=== PATIENT | male | born 2005 | race African-American/Black ===

== ENCOUNTER 2025-08-11 19:22 | Emergency (ER) | payer OTHER ==
[2025-08-11] MEDS ORDERED: LIDOCAINE 1% MPF 5 ML VIAL ONE (21:09)
[2025-08-11] MEDS ORDERED: IBUPROFEN 200 MG TAB PO ONE (21:09)
--- NOTE | 2025-08-11 21:57 | RAD REPORT ---
EXAMINATION: XR RIGHT TIBIA AND FIBULA CLINICAL INDICATION: ANIMAL BITE TECHNIQUE:Two view radiograph of the right tibia and fibula were obtained. COMPARISON: No prior exam. FINDINGS: Soft tissue swelling seen in the calf region. No radiopaque foreign body. No fracture or di slocation seen.
[2025-08-11] MEDS ORDERED: AMOX/K CLAV 875 MG TAB ONE (23:06)
--- NOTE | 2025-08-11 23:06 | EDPHYS ---
Physician Documentation [facility] Name: Lachelle Vila Age: 19 yrs Sex: Male : 2005 Arrival Date: 08/11/2025 Time: 19: Bed 11 Private MD: ED Physician Maurice Flores HPI: 08/11 21:05 This 19 yrs old Black Male presents to ER via Ambulatory with complaints of Dog Bite. cp 21:05 The patient was bitten on the right calf, by a dog, as a result of being attacked by cp the animal. Onset: The symptoms/episode began/occurred today. Animal information: Patient/Caregiver unable to provide information related to the animal. Secondary to the bite the patient reports a laceration, that is deep. Associated signs and symptoms: The patient has no apparent associated signs or symptoms. Historical: - Allergies: 20:18 No Known Allergies; dd2 - PMHx: 20:18 None; dd2 - PSHx: 20:18 None; dd2 - Immunization history:: Adult Immunizations not up to date, Last tetanus immunization: unknown. - Infectious Disease History:: Denies. - Social history:: Smoking status: Patient denies any tobacco usage or history of. ROS: 21:10 Skin: Positive for laceration(s), of the right calf, cp 21:10 Constitutional: Negative for body aches, chills, fever, cp 21:10 Neck: Negative for pain with movement, pain at rest, 21:10 Respiratory: Negative for cough, shortness of breath, wheezing, 21:10 Abdomen/GI: Negative for abdominal pain, 21:10 Back: Negative for pain at rest, pain with movement, 21:10 Neuro: Negative for numbness, weakness, 21:10 All other systems are negative, Exam: 21:15 Constitutional: The patient appears in no acute distress, alert, awake, comfortable, cp non-toxic, well developed, well nourished, 21:15 Head/Face: Normocephalic, atraumatic. cp 21:15 ENT: External ear(s): are unremarkable, Nose: is normal, Mouth: is normal, Posterior pharynx: Airway: no evidence of obstruction, patent, 21:15 Chest/axilla: Inspection: normal, 21:15 Cardiovascular: Rate: normal, 21:15 Respiratory: the patient does not display signs of respiratory distress, Respirations: normal, no use of accessory muscles, no retractions, 21:15 Abdomen/GI: Exam negative for discomfort, distension, guarding, Inspection: abdomen appears normal, 21:15 Skin: injury, laceration(s), the wound is approximately 2 cm(s), of the right calf, that can be described as no foreign body, linear, with mild bleeding, Vital Signs: 20:13 BP 110 / 74; Pulse 77; Resp 16; Temp 97.9; Pulse Ox 100% on R/A; Pain 7/10; dd2 23:14 BP 112 / 73; Pulse 74; Resp 16; Pulse Ox 100% ; cp4 20:13 Pain Scale: Adult dd2 Laceration: 23:05 Wound Repair of 2cm ( 0.8in ) subcutaneous laceration to right leg. Linear shaped.. cp Distal neuro/vascular/tendon intact. Anesthesia: Wound infiltrated with 5 mls of 2% lidocaine. Wound prep: Moderate cleansing by me, Wound irrigation by me. Skin closed with 1 4-0 Prolene using loose closure. Dressed with Bacitracin, 4x4's. Patient tolerated well. MDM: 20:10 Medical Screening Exam initiated cp 21:00 Differential diagnosis: superficial laceration, tendon injury, vascular injury, open cp fracture. 23:05 Data reviewed: vital signs, nurses notes, radiologic studies, plain films, and as a cp result, I will discharge patient. 23:05 I considered the following discharge prescriptions or medication management in the cp emergency department Medications were administered in the Emergency Department. See MAR. Independent interpretation of the following test(s) in the Emergency Department X-Ray: My interpretation is images of right tib/fib negative for fracture. Counseling: I had a detailed discussion with the patient and/or guardian regarding the historical points, exam findings, and any diagnostic results supporting the discharge/admit diagnosis, radiology results, the need for outpatient follow up, a family practitioner, to return to the emergency department if symptoms worsen or persist or if there are any questions or concerns that arise at home. Response to treatment: the patient's symptoms have mildly improved after treatment, and as a result, I will discharge patient. Special discussion: I discussed in detail with the patient the higher chance of wound infection based on his presenting history. 08/11 20:57 Order name: XRAY Tib Fib RIGHT; Complete Time: 22:04 cp 08/11 22:05 Interpretation: Report reviewed. cp 08/11 20:57 Order name: Dressing - Wound; Complete Time: 21:04 cp 08/11 20:57 Order name: Gloves, Sterile; Complete Time: 21:04 cp 08/11 20:57 Order name: Setup Suture Tray; Complete Time: 21:04 cp 08/11 22:05 Order name: Wound Care: clean and irrigate wound; Complete Time: 22:30 cp 08/11 23:03 Order name: Wound dressing; Complete Time: 23:04 cp Administered Medications: 21:11 Drug: Ibuprofen PO 600 mg PO once Route: PO; cp4 22:30 Follow up: Response: No adverse reaction; Pain is decreased cp4 22:22 Drug: Lidocaine Infiltration (1 %) 5 ml 5 ml Infiltration once; to bedside {Note: cp4 Administered by provider.} Volume: 5 ml; Route: Infiltration; 23:09 Drug: Amoxicillin-Clavulanate PO 875 mg PO once Route: PO; cp4 23:16 Follow up: Response: No adverse reaction cp4 Disposition: 08/12 22:51 Chart complete. cp Disposition Summary: 08/11/25 23:05 Discharge Ordered Notes: Location: Home cp Problem: new cp Symptoms: have improved cp Condition: Stable cp Diagnosis - Leg Laceration/ Open wound of lower leg - right calf cp - Bitten by dog cp Followup: cp - With: Private Physician - When: 10 - 14 days - Reason: Staple/Suture removal Discharge Instructions: - Discharge Summary Sheet cp - Laceration Care, Adult cp - Sutured Wound Care cp - Animal Bite, Adult cp Forms: - Medication Reconciliation Form cp - Antibiotic Education cp - Prescription Opioid Use cp - Patient Portal Instructions cp - Leadership Thank You Letter cp Prescriptions: - Augmentin 875-125 mg Oral Tablet - take 1 tablet ORAL route every 12 hours for 10 days; 20 tablet; Refills: 0, cp Product Selection Permitted Addendum: 08/16/2025 09:03 Co-signature as Attending Physician, Maurice Flores DO I reviewed the patient's care t t7 provided by the Advanced Practice Provider and agree with the diagnosis and treatment plan. Signatures: Dispatcher [facility] Dionicio Mcknight PA-C PA-C cp Potter Adriana cp4 PEYTON CARRERO, RN RN dd2 Maurice Flores, DO GUIDO tt7
--- NOTE | 2025-08-11 23:06 | ER ---
Nurse's Notes [facility] Name: Lachelle Vila Age: 19 yrs Sex: Male : 2005 Arrival Date: 08/11/2025 Time: 19:22 Bed 11 Private MD: Diagnosis: Leg Laceration/ Open wound of lower leg-right calf;Bitten by dog Presentation: 08/11 20:13 Chief complaint: Patient states: WAS BIT ON THE RT CALF BY A LARGE LABRADOR 2 HOURS dd2 AGO. POLICE ADVISED PT THE DOG HAS NOT HAD VACCINE OR SHOTS IN 2 YEARS. Coronavirus screen: At this time, the client does not indicate any symptoms associated with coronavirus-19. Ebola Screen: No symptoms or risks identified at this time. Initial Sepsis Screen: Does the patient meet any 2 criteria? No. Patient's initial sepsis screen is negative. Does the patient have a suspected source of infection? No. Patient's initial sepsis screen is negative. Risk Assessment: Do you want to hurt yourself or someone else? Patient reports no desire to harm self or others. Onset of symptoms was August 11, 2025 at 18:17. 20:13 Method Of Arrival: Ambulatory dd2 20:13 Acuity: ADAM 3 dd2 Triage Assessment: 20:18 Bite description: bite sustained to right calf by a dog, animal information: dd2 vaccination(s) is not up to date. General: Appears in no apparent distress. uncomfortable, Behavior is calm, cooperative, appropriate for age. Pain: Complains of pain in right calf. Historical: - Allergies: 20:18 No Known Allergies; dd2 - PMHx: 20:18 None; dd2 - PSHx: 20:18 None; dd2 - Immunization history:: Adult Immunizations not up to date, Last tetanus immunization: unknown. - Infectious Disease History:: Denies. - Social history:: Smoking status: Patient denies any tobacco usage or history of. Screenin:49 [facility] ED Fall Risk Assessment (Adult) History of falling in the last 3 months, cp4 including since admission No falls in past 3 months (0 pts) Confusion or Disorientation No (0 pts) Intoxicated or Sedated No (0 pts) Impaired Gait No (0 pts) Mobility Assist Device Used No (0 pt) Altered Elimination No (0 pt) Score/Fall Risk Level 0 - 2 = Low Risk Oriented to surroundings, Maintained a safe environment, Assessed \T\ reinforced patient's understanding of fall precautions, Hourly rounding (assess needs \T\ fall precautionary measures) done. Abuse screen: Denies threats or abuse. Denies injuries from another. Nutritional screening: No deficits noted. Tuberculosis screening: No symptoms or risk factors identified. Never had TB. Assessment: 20:19 Reassessment: [employer] [employer] CASE #[id number] OFFICER Jade BECERRA #[id number]. dd2 20:49 General: Appears in no apparent distress. comfortable, Behavior is calm, cooperative, cp4 appropriate for age. Pain: Complains of pain in right leg and right calf Pain does not radiate. Pain currently is 7 out of 10 on a pain scale. Neuro: Level of Consciousness is awake, alert, obeys commands, Oriented to person, place, time, situation. Cardiovascular: Patient's skin is warm and dry. Respiratory: Airway is patent Respiratory effort is even, unlabored. GI: No signs and/or symptoms were reported involving the gastrointestinal system. : No signs and/or symptoms were reported regarding the genitourinary system. EENT: No signs and/or symptoms were reported regarding the EENT system. Derm: Skin puncture wounds. Musculoskeletal: No signs and/or symptoms reported regarding the musculoskeletal system. 23:15 Derm: Skin is pink, warm \T\ dry. cp4 Vital Signs: 20:13 BP 110 / 74; Pulse 77; Resp 16; Temp 97.9; Pulse Ox 100% on R/A; Pain 7/10; dd2 23:14 BP 112 / 73; Pulse 74; Resp 16; Pulse Ox 100% ; cp4 20:13 Pain Scale: Adult dd2 ED Course: 19:27 Patient arrived in ED. gm2 19:50 Dionicio Mcknight PA-C is PHCP. cp 19:50 Maurice Flores DO is Attending Physician. cp 20:18 Triage completed. dd2 20:19 Arm band placed on right wrist. dd2 20:48 Adriana Johnson is Primary Nurse. cp4 20:49 Bed in low position. Call light in reach. Provided Education on: dog bite. cp4 20:49 No provider procedures requiring assistance completed. Patient did not have IV access cp4 during this emergency room visit. 21:54 XRAY Tib Fib RIGHT In Process Unspecified. EDMS Administered Medications: 21:11 Drug: Ibuprofen PO 600 mg PO once Route: PO; cp4 22:30 Follow up: Response: No adverse reaction; Pain is decreased cp4 22:22 Drug: Lidocaine Infiltration (1 %) 5 ml 5 ml Infiltration once; to bedside {Note: cp4 Administered by provider.} Volume: 5 ml; Route: Infiltration; 23:09 Drug: Amoxicillin-Clavulanate PO 875 mg PO once Route: PO; cp4 23:16 Follow up: Response: No adverse reaction cp4 Medication: 20:49 VIS not applicable for this client. cp4 Outcome: 23:05 Discharge ordered by MD. cp 23:15 Discharged to home ambulatory, cp4 23:15 Condition: stable 23:15 Discharge instructions given to patient, family, Instructed on discharge instructions, follow up and referral plans. medication usage, Demonstrated understanding of instructions, follow-up care, medications, Prescriptions given X 1, 23:17 Patient left the ED. cp4 Signatures: Dispatcher [employer] [facility] Dionicio Mcknight PA-C PA-C cp Potter, Christina cp4 Camila Ricks gm2 PEYTON CARRERO, RN RN dd2
[2025-08-11 23:36] VITALS: TEMP 97.9; O2SAT 100
[2025-08-11 23:45] VITALS: BP 112/73
== END 2025-08-11 23:17 | disposition home or self-care (01) ==
LOC: ER 19:22
DX: S81.811A Laceration without foreign body, right lower leg, initial encounter (principal); W54.0XXA Bitten by dog, initial encounter
CPT/HCPCS: 73590; 99283; 12031; J2003